=== PATIENT | male | born 2005 | race Hispanic/Latino ===

== ENCOUNTER 2023-03-03 05:27 | Emergency (ER) | payer OTHER ==
[~2023-03-03] VITALS: Ht 172.7 cm; Wt 93.9 kg
[2023-03-03] MEDS ORDERED: ONDANSETRON 4MG INJ ONE (05:45)
[2023-03-03] MEDS ORDERED: 0.9%NACL 1000ML 1,000 ML IV ONE (06:00)
[2023-03-03] MEDS ORDERED: ONDANSETRON 4MG INJ IVP ONE (06:00)
[2023-03-03] MEDS ORDERED: KETOROLAC 30MG VIAL (30MG/ML) IVP ONE (06:00)
[2023-03-03 06:14] LABS: BASOPHILS % (AUTO) 0.3 % (0.0-5.0); EOSINOPHILS % (AUTO) 0.6 % (0.0-8.0); HEMATOCRIT 41.4 % (42-54); LYMPHOCYTES % (AUTO) 16.8 % (21.0-51.0); MEAN CORPUSCULAR HEMOGLOBIN 29.2 pg (27.0-33.0); MEAN CORPUSCULAR HGB CONC 35.3 g/dL (32.0-36.0); MEAN CORPUSCULAR VOLUME 82.8 fL (80-100); MONOCYTES % (AUTO) 4.9 % (3.0-13.0); NEUTROPHILS % (AUTO) 76.8 % (40.0-77.0); PLATELET COUNT (AUTO) 249 K/uL (130-400); RED CELL DISTRIBUTION WIDTH 11.9 % (11.0-15.5)
[2023-03-03 06:24] LABS: ALBUMIN 4.1 g/dL (3.5-5.0)
[2023-03-03 06:26] LABS: POTASSIUM 2.9 mmol/L (3.5-5.1)
[2023-03-03 06:28] LABS: TOTAL PROTEIN, SERUM 7.5 g/dL (6.0-8.3)
[2023-03-03] MEDS ORDERED: POTASSIUM CHLORIDE 10% ELIXIR 20 MEQ/15 ML UDCUP PO ONE (06:30)
[2023-03-03] MEDS ORDERED: MORPHINE 2 MG SYG ONE (06:41)
[2023-03-03] MEDS ORDERED: MORPHINE 4 MG SYG IVP ONE (07:00)
[2023-03-03] MEDS ORDERED: MORPHINE 2 MG SYG IVP ONE (07:00)
[2023-03-03] MEDS ORDERED: OXYC-38 PO (07:35)
[2023-03-03 07:39] LABS: APPEARANCE,URINE CLOUDY (CLEAR); BILIRUBIN,URINE NEGATIVE (NEGATIVE); COLOR,URINE LIGHT-YELLOW (YELLOW); GLUCOSE, URINE (UA) NEGATIVE (NEGATIVE); KETONES,URINE NEGATIVE (NEGATIVE); LEUKOCYTE ESTERASE ,URINE NEGATIVE Leu/uL (NEGATIVE); NITRATE,URINE NEGATIVE (NEGATIVE); OCCULT BLOOD,URINE LARGE (NEGATIVE); PH,URINE 6.5 (5.0-8.0); PROTEIN,URINE NEGATIVE (NEGATIVE); UROBILINOGEN,URINE 0.2 mg/dL (0.2-1.0)
[2023-03-03 07:45] VITALS: BP 145/73
[2023-03-03 07:51] LABS: BACTERIA,URINE RARE /HPF (None Seen); MUCUS,URINE RARE LPF (None Seen); SQUAMOUS EPITHELIAL CELL,UR MANY /HPF (0-2)
[2023-03-03] MEDS ORDERED: CEPH500B PO (08:47)
== END 2023-03-03 09:01 | disposition home or self-care (01) ==
LOC: EDH 05:27
DX: R10.11 Right upper quadrant pain (principal); E87.6 Hypokalemia; N13.2 Hydronephrosis with renal and ureteral calculous obstruction
CPT/HCPCS: 99285; 74176; 96374; 76705; 96361; 96375; 80053; 83690; 85025; 81001; 36415; J7030; J2405; J1885